=== PATIENT | male | born 1955 | race Caucasian/White ===

== ENCOUNTER → 2021-03-15 | Outpatient (CLI) | payer MEDICARE ==
[~2021-03-15] MED LIST: CARV6.25 PO; FLUTISP; LEVOTAB10 PO; LORA1TAB4 PO; LOSA100T50 PO
== END ==
LOC: M LABSMTC 10:25
PROVIDERS: ATTEND Anesthesiology
DX: Z01.812 Encounter for preprocedural laboratory examination (principal); Z20.822 Contact with and (suspected) exposure to COVID-19

== ENCOUNTER 2021-03-20 06:07 | Day surgery (SDC) | payer MEDICARE ==
[~2021-03-20] VITALS: Ht 193 cm; Wt 106.8 kg
[~2021-03-20 06:07] MED LIST changes: +LR 1,000 ML IV ONE; +ceFAZolin SOD 2 GM in IV 1 EA IV ONE
[2021-03-20] MEDS ORDERED: LIDOCAINE 2% W/EPINEPHRINE 20ML VIAL **PRES FREE As Ordered ONE (07:09)
[2021-03-20] MEDS ORDERED: BACITRACIN OINTMENT 30GM TUBE As Ordered ONE (07:09)
[2021-03-20] MEDS ORDERED: POVIDONE-IODINE 5% OPHTH PREP SOL 30ML As Ordered ONE (07:12)
[2021-03-20] MEDS ORDERED: ONDANSETRON 4MG/2ML VIAL As Ordered ONE (07:21)
[2021-03-20] MEDS ORDERED: propofoL 200 MG/20 ML VIAL As Ordered ONE ×2 (07:21→08:35)
[2021-03-20] MEDS ORDERED: LIDOCAINE 2% 100MG/5ML SDV (FOR ANES.) As Ordered ONE (07:21)
[2021-03-20] MEDS ORDERED: MIDAZOLAM INJ 2MG/2ML VIAL (J2250 PER 1MG) As Ordered ONE ×2 (07:21→07:53)
[2021-03-20] MEDS ORDERED: fentaNYL 100 MCG/2 ML INJECTION (J3010) As Ordered ONE (07:21)
[2021-03-20] MEDS ORDERED: LIDOCAINE W/EPINEPHRINE 1% 20ML VIAL As Ordered ONE (07:26)
[2021-03-20] MEDS ORDERED: ACETAMINOPHEN 1000MG 100ML IV BTL (OFIRMEV) (J0131 PER 10MG) As Ordered ONE (08:07)
[2021-03-20] MEDS ORDERED: POLYSPORIN OPHTH OINT 3.5 GM As Ordered ONE ×2 (09:13→09:21)
--- NOTE | 2021-03-20 09:34 | ROOPDOC ---
[facility] Report Of Operation Report of Operation DATE OF PROCEDURE: 03/20/21 PREOPERATIVE DIAGNOSIS: Right lateral nose lesion POSTOPERATIVE DIAGNOSIS: same PROCEDURE: Excision of right lateral nose lesion with advancement flap closure. SURGEON: Dr Robb ANESTHESIA: local with sedation ESTIMATED BLOOD LOSS: 1 cc FINDINGS: Right lateral nose lesion 0.5x0.5 cm. SPECIMENS: Right lateral nose lesion FS, suture at 12 o'clock. Additional margins 3 and 9 o'clock and deep margin FS. COMPLICATIONS: none REPLACED: none DRAINS: none POSTOPERATIVE CONDITION: stable DESCRIPTION OF PROCEDURE: This is a 65 year-old male with recently identified pigmented lesion on the right lateral nose. There is no previous biopsy. Patient is scheduled to have excisional biopsy done. Medical clearance obtained. Risks, benefits, and alternatives discussed with the patient. He is ready to proceed. Lesion measures 0.5 x 0.5 cm in diameter, its dark brown color with punched-out edges, thick scab and pinched out center. After obtaining informed consent patient brought into the operating room, placed in supine position, perioperative antibiotics given, sequential stockings placed in the lower calves. He was prepped and draped in the usual sterile fashion. Local given to the patient, 2% lidocaine with epinephrine was infiltrated in the area, total used 2 cc for the whole case. Lesion has been remeasured and marked with 3 mm margins. After effect of lidocaine taken place, incision carried out with 10 blade in elliptical fashion around the pigmented lesion. Lesion completely excised using scalpel, its marked at 12:00 with a nylon suture and sent to pathology. Hemostasis is obtained using electrocautery. 3 and 9:00 margins were positive on frozen section therefore additional margins were taken and sent for frozen. After that frozen section came back with clear margins the wound was reevaluated again. At this time it is 1 x 1 cm in diameter. We have designed a rhomboid flap to accommodate the closure of the area. The flap is inferiorly based. It was undermined using iris scissors and set in place with the help of 5-0 Vicryl suture. 5-0 Monocryl sutures interrupted fashion was used to close the flap incision. Abdominal bacitracin applied. Patient to lerated procedure well and transferred to recovery room in stable condition. MARIAELENA ROBB DO Mar 20, 2021 09:34
--- NOTE | 2021-03-20 09:34 | POST-OPPD ---
Postoperative Procedure Note Date Of Procedure: Mar 20, 2021 PREOPERATIVE DIAGNOSIS: Right lateral nose lesion POSTOPERATIVE DIAGNOSIS: same PROCEDURE: Excision of right lateral nose lesion with advancement flap closure. SURGEON: Dr Robb ANESTHESIA: local with sedation ESTIMATED BLOOD LOSS: 1 cc FINDINGS: Right lateral nose lesion 0.5x0.5 cm. SPECIMENS: Right lateral nose lesion FS, suture at 12 o'clock. Additional margins 3 and 9 o'clock and deep margin FS. COMPLICATIONS: none REPLACED: none DRAINS: none POSTOPERATIVE CONDITION: stable MARIAELENA ROBB DO Mar 20, 2021 09:34
== END 2021-03-20 10:00 | disposition home or self-care (01) ==
LOC: M SDC 06:07 → EDUNIT# 07:30 → M SDC 10:00
PROVIDERS: ATTEND Plastic Surgery Surgery of the Hand
DX: C44.311 Basal cell carcinoma of skin of nose (principal); I10 Essential (primary) hypertension; F41.9 Anxiety disorder, unspecified; F17.218 Nicotine dependence, cigarettes, with other nicotine-induced disorders; J44.9 Chronic obstructive pulmonary disease, unspecified; Z79.899 Other long term (current) drug therapy
CPT/HCPCS: 14060; 88305; 88331; 88332; J0131; J0690; J2250; J2405; J3010

== ENCOUNTER → 2021-12-06 | Outpatient (REF) | payer MEDICARE, BC ==
[~2021-12-06] MED LIST changes: +LOSA100T45 PO; -LOSA100T50 PO; -LR 1,000 ML IV ONE; -ceFAZolin SOD 2 GM in IV 1 EA IV ONE
== END ==
LOC: M SFHCDERM 14:29
PROVIDERS: ATTEND Nurse Practitioner Family
DX: C44.319 Basal cell carcinoma of skin of other parts of face (principal)